=== PATIENT | female | born 1940 | race Caucasian/White ===

== ENCOUNTER → 2017-07-03 | Outpatient (CLI) | payer MEDICARE, OTHER ==
--- NOTE | 2017-07-03 18:04 | Diagnostic Imaging Report ---
INDICATION: Screening mammogram. COMPARISON: 06/30/2016. TECHNIQUE: Digital screening mammography was obtained. The current study was also evaluated with a Computer Aided Detection (CAD) system. FINDINGS: Scattered fibroglandular densities are again seen. There is no mass or suspicious calcification. IMPRESSION: Stable screening mammogram. No malignancy. ACR BI-RADS Category 1: Negative. Result letter will be mailed to the patient. Note: At least 10% of breast cancer is not imaged by mammography. Dictated on workstation # [id number]
== END ==
LOC: RAD 12:32
PROVIDERS: ATTEND Nurse Practitioner
DX: Z12.31 Encounter for screening mammogram for malignant neoplasm of breast (principal)
CPT/HCPCS: 77067

== ENCOUNTER → 2017-07-06 | Outpatient (CLI) | payer MEDICARE, OTHER ==
--- NOTE | 2017-07-06 19:18 | Diagnostic Imaging Report ---
EXAMINATION: Supine abdomen at 11:09 a.m. INDICATION: Back pain. COMPARISON: There are no prior studies available for comparison. Two supine views of the abdomen were obtained. FINDINGS: There is a large 3.9 x 5.2 cm floccular calcification along the pelvis on the left. Most likely, this is related to a calcified uterine fibroid. If further study is desired, then ultrasound would be recommended. There is no other pathological calcification evident. There is a small amount of gas in both the large and small bowel in a nonspecific fashion. There is no evidence for bowel obstruction. There does appear to be a moderate amount of fecal material within the colon. There is no mass or organomegaly identified. The osseous structures are intact. IMPRESSION: 1. The bowel gas pattern is nonspecific. There is no acute abnormality identified. 2. The large floccular calcification along the pelvis on the left is most likely due to a uterine fibroid. Recommendations as above. Dictated by: Dictated on workstation # [id number]
--- NOTE | 2017-07-06 19:19 | Diagnostic Imaging Report ---
EXAMINATION: Lumbar spine at 11:10 p.m. INDICATION: Back pain. TECHNIQUE: AP, lateral, and spot lateral views were obtained. COMPARISON: There are no prior studies available for comparison. FINDINGS: The lateral view shows the vertebral body heights and alignment to be generally within normal limits and the intervertebral spaces to be fairly well maintained. There is no fracture or acute bony abnormality evident. There is no sign of a paraspinal mass. The large floccular calcification low in the pelvis on the left seen on the abdomen exam performed in conjunction with this study is again noted. Most likely, this finding is related to a calcified uterine fibroid. There is mild symmetrical sclerosis of the sacroiliac joints. IMPRESSION: 1. There is no evidence for an acute bony abnormality. 2. If there is clinical concern regarding spinal stenosis or nerve root encroachment and if further imaging is desired, then MRI would be recommended. Dictated by: Dictated on workstation # [id number]
--- NOTE | 2017-07-06 19:22 | Diagnostic Imaging Report ---
EXAMINATION: Sacrum and coccyx at 11:11 a.m. INDICATION: Pain. AP and lateral views were obtained. There are no previous studies available for comparison. FINDINGS: There is no fracture, dislocation, or acute bony abnormality evident. There is mild symmetrical sclerosis of the sacroiliac joints. The large floccular calcification in the left pelvis seen on the abdomen exam performed in conjunction with this study is again evident. Most likely, this is related to a uterine fibroid. IMPRESSION: There is no evidence for an acute bony abnormality. Dictated by: Dictated on workstation # [id number]
== END ==
LOC: RAD 10:27
PROVIDERS: ATTEND Nurse Practitioner
DX: M54.5 Low back pain (principal); R10.84 Generalized abdominal pain
CPT/HCPCS: 72100; 72220; 74000

== ENCOUNTER → 2019-01-08 | Outpatient (CLI) | payer MEDICARE, OTHER ==
--- NOTE | 2019-01-08 13:22 | Diagnostic Imaging Report ---
Indication: Fall. 4 views were obtained. Findings: Heart size is normal. There is minimal perihilar atelectasis and/or pneumonitis. Questionable small left pleural effusion. There is a fracture of the left sixth and seventh ribs laterally. Impression: Fractures of the left sixth and seventh ribs laterally Minimal perihilar atelectasis and/or pneumonitis and a small left pleural effusion. Dictated by: Dictated on workstation # [id number]
== END ==
LOC: RAD 10:54
PROVIDERS: ATTEND Physician Assistant
DX: S22.42XA Multiple fractures of ribs, left side, initial encounter for closed fracture (principal); J90 Pleural effusion, not elsewhere classified; W19.XXXA Unspecified fall, initial encounter
CPT/HCPCS: 71101

== ENCOUNTER → 2019-01-15 | Outpatient (CLI) | payer MEDICARE, OTHER ==
--- NOTE | 2019-01-15 12:11 | Diagnostic Imaging Report ---
INDICATION: Tripped on steps two weeks ago. Left rib fracture. TECHNIQUE: Single-view chest along with three views of left ribs at 10:11 a.m. CORRELATION STUDY: 01/08/2019. FINDINGS: The heart size, mediastinal configuration and pulmonary vascularity are within normal limits. Minimal atelectasis about the left mid lung field. Trace left pleural effusion. No pneumothorax. There do appear to be slight healing changes with early callus formation at the lateral left seventh rib fracture. There may be minimal healing changes of the sixth rib fracture. Alignment is relatively stable. IMPRESSION: 1. Minimal atelectasis about the left [id number] lung field along with trace left pleural effusion. 2. Suggestion of early healing changes about the relatively nondisplaced left sixth and seventh rib fractures. Dictated by: Dictated on workstation # [id number]
== END ==
LOC: RAD 09:39
PROVIDERS: ATTEND Physician Assistant
DX: S22.42XA Multiple fractures of ribs, left side, initial encounter for closed fracture (principal); J90 Pleural effusion, not elsewhere classified; W01.0XXA Fall on same level from slipping, tripping and stumbling without subsequent striking against object, initial encounter
CPT/HCPCS: 71101

== ENCOUNTER → 2019-03-07 | Outpatient (CLI) | payer MEDICARE, OTHER ==
--- NOTE | 2019-03-07 12:15 | Diagnostic Imaging Report ---
INDICATION: History of rib fracture. Recent fall. COMPARISON: 01/15/2019 and 01/08/2019. FINDINGS: Frontal and lateral radiographic views of the chest were obtained. Previously described left lateral rib fractures are essentially inconspicuous on this exam. There is however persistent linear opacity within the peripheral left mid lung, which may be on the basis of underlying scarring and/or atelectasis. Just inferior to this, there is an additional linear more nodular-appearing opacity, which extends in the CC. Otherwise, lungs are clear. There is no large effusion or pneumothorax on either side. Cardiac silhouette and pulmonary vasculature within normal limits. IMPRESSION: 1. Patient's known left-sided rib fractures are essentially inconspicuous. 2. Stable scarring and/or atelectasis in the left mid lung. 3. Stable second nodular opacity seen slightly more inferiorly, which may be on posttraumatic basis as well. True pulmonary nodule however cannot be excluded. Followup CT chest may be of benefit for further characterization. Dictated by: Dictated on workstation # [id number]
== END ==
LOC: RAD 11:09
PROVIDERS: ATTEND Internal Medicine
DX: J90 Pleural effusion, not elsewhere classified (principal); Z87.81 Personal history of (healed) traumatic fracture
CPT/HCPCS: 71046

== ENCOUNTER → 2019-03-14 | Outpatient (CLI) | payer MEDICARE, OTHER ==
[~2019-03-14] MED LIST: CATHETER FLUSH 10 ML SYR IV PRN; HOLD METFORMIN - RECEIVED CONTRAST 20 ML VIAL IV SCH; IOHEXOL 350 MG/ML 100 ML (OMNIPAQUE 350) VIAL IV ONE
--- NOTE | 2019-03-14 18:39 | Diagnostic Imaging Report ---
PROCEDURE: CT chest with contrast only. TECHNIQUE: Multiple contiguous axial images were obtained through the chest after administration of intravenous contrast. Auto Exposure Controls were utilized during the CT exam to meet ALARA standards for radiation dose reduction. INDICATION: Injury with rib fractures. FINDINGS: Callus formation is associated with healed or healing fractures of the left sixth, seventh, and eighth ribs in stable alignment. An acute rib fracture deformity is not identified. There is no pneumothorax or hemothorax. There are very minimal zones of subsegmental lingular and right middle lobe partial atelectasis of the anterior lung bases. No pneumatocele. No chest wall hematoma. The visualized upper abdomen shows a small hiatal hernia with no free fluid or free air. IMPRESSION: Callus is associated with healed or healing left rib fractures in stable alignment without findings of pulmonary parenchymal or pleural injury. Dictated by: Dictated on workstation # [id number]
== END ==
LOC: RAD 12:37
PROVIDERS: ATTEND Internal Medicine
DX: S22.42XD Multiple fractures of ribs, left side, subsequent encounter for fracture with routine healing (principal); L84 Corns and callosities
CPT/HCPCS: 71260

== ENCOUNTER → 2019-07-16 | Outpatient (CLI) | payer MEDICARE, OTHER ==
--- NOTE | 2019-07-16 13:12 | Diagnostic Imaging Report ---
INDICATION: Routine screening. COMPARISON: Comparison is made with prior mammograms from 07/12/2018 and 07/03/2017. TECHNIQUE: 2-D and 3-D bilateral screening mammography was performed. The current study was also evaluated with a Computer Aided Detection (CAD) system. 3-D tomosynthesis was also performed and reviewed. FINDINGS: Both breasts remain heterogeneously dense, limiting the sensitivity of mammography. Benign calcifications and benign nodular densities appear stable. No spiculated mass or malignant-appearing microcalcifications are seen. Axillae are unremarkable. IMPRESSION: No mammographic features suspicious for malignancy are identified. ACR BI-RADS Category 2: Benign findings. Result letter will be mailed to the patient. Note: At least 10% of breast cancer is not imaged by mammography. Dictated by: Dictated on workstation # [id number]
== END ==
LOC: RAD 09:42
PROVIDERS: ATTEND Nurse Practitioner
DX: Z12.31 Encounter for screening mammogram for malignant neoplasm of breast (principal)
CPT/HCPCS: 77067

== ENCOUNTER 2020-07-10 11:37 | Emergency (ER) | payer MEDICARE, OTHER ==
[~2020-07-10] VITALS: Ht 157 cm; Wt 68.9 kg
--- NOTE | 2020-07-10 12:19 | Diagnostic Imaging Report ---
INDICATION: Fall with pelvic pain. TECHNIQUE: AP pelvis obtained at 12:16 p.m. FINDINGS: No fracture or acute bony abnormality is seen. Joint spaces are unremarkable. There is a large densely calcified lesion in the pelvis which is probably a calcified fibroid. This is unchanged from 07/06/2017. IMPRESSION: No acute fracture of the bony pelvis. Dictated by: Dictated on workstation # [id number]
--- NOTE | 2020-07-10 12:22 | NUR ---
NOTIFIED OF PT DISCHARGE
--- NOTE | 2020-07-10 12:48 | ED Fall/Injury ---
General Chief Complaint: Trauma-Non Activation Stated Complaint: FALL Nursing Triage Note: fall Source: patient Exam Limitations: no limitations History of Present Illness Date Seen by Provider: Jul 10, 2020 Time Seen by Provider: 12:00 Initial Comments To ER by private vehicle with reports of a fall. She drove herself here and was ambulatory into the emergency room. She was at the bank turning around to turn her deposit box in and fell onto her butt. She did not hit her head. She complains of some pain to the left ischio and the low back. Location Injury Occurred: bank Occurred: just prior to arrival Severity: moderate Injuries/Pain Location: no injury Context: lost balance, slipped Associated Symptoms (Fall): Denies Symptoms Allergies and Home Medications Allergies Coded Allergies: No Allergy Information Available (Unverified , 03/14/19) Patient Home Medication List Home Medication List Reviewed: Yes Review of Systems Review of Systems Constitutional: see HPI Eyes: No Symptoms Reported Ears, Nose, Mouth, Throat: no symptoms reported Respiratory: no symptoms reported Cardiovascular: no symptoms reported Genitourinary: no symptoms reported Musculoskeletal: no symptoms reported Skin: no symptoms reported Psychiatric/Neurological: No Symptoms Reported Past Ufktwvj-Kdercc-Kznxxh Hx Patient Social History Alcohol Use: Denies Use Recreational Drug Use: No 2nd Hand Smoke Exposure: No Recent Foreign Travel: No Contact w/Someone Who Travel: No Recent Infectious Disease Expo: No Recent Hopitalizations: No Seasonal Allergies Seasonal Allergies: No Past Medical History Respiratory: No Cardiac: No Neurological: No Genitourinary: No Gastrointestinal: No Musculoskeletal: No Endocrine: No HEENT: No Cancer: No Psychosocial: No Integumentary: No Blood Disorders: No Physical Exam Vital Signs Vital Signs - First Documented 07/10/20 11:56 Temp 36.4 Pulse 68 Resp 18 B/P (MAP) 145/71 (95) Pulse Ox 95 O2 Delivery Room Air Capillary Refill : Less Than 3 Seconds Height, Weight, BMI Height: '" Weight: lbs. oz. kg; 27.00 BMI Method: General Appearance: WD/WN, no apparent distress Neck: non-tender, full range of motion Respiratory: no respiratory distress, no accessory muscle use Gastrointestinal: normal bowel sounds, soft Back: other (tenderness to palpation left ischio M, no tenderness to palpation of the lumbar spine. Alert and oriented for a pleasant.) Neurologic/Psychiatric: alert, normal mood/affect, oriented x 3 Skin: normal color, warm/dry [place] Coma Score Best Eye Response: (4) Open Spontaneously Best Verbal Response: (5) Oriented Best Motor Response: (6) Obeys Commands Donna Total: 15 Progress/Results/Core Measures Results/Orders My Orders Orders - MARIAN DEY APRN Pelvis (07/10/20 11:51) Ct Lumbar Spine Wo (07/10/20 12:26) Tramadol Tablet (Ultram Tablet) (07/10/20 13:30) Medications Given in ED Current Medications Medications Dose Ordered Sig/Janel Route Start Time Stop Time Status Last Admin Dose Admin Tramadol HCl 50 mg ONCE ONCE PO 07/10/20 13:30 07/10/20 13:31 DC 07/10/20 13:34 50 MG Vital Signs/I&O 07/10/20 11:56 Temp 36.4 Pulse 68 Resp 18 B/P (MAP) 145/71 (95) Pulse Ox 95 O2 Delivery Room Air Blood Pressure Mean: 95 Diagnostic Imaging Diagonstic Imaging: Xray Comments NAME: [facility] REC#: [id number] PT STATUS: REG ER : 1940 PHYSICIAN: MARIAN DEY APRN ADMIT DATE: 07/10/20/ER Draft Date of Exam:07/10/20 CT LUMBAR SPINE WO PROCEDURE: CT lumbar spine without contrast. TECHNIQUE: Multiple contiguous axial images were obtained through the lumbar spine without the use of intravenous contrast. Sagittal and coronal reformations were then performed. Auto Exposure Controls were utilized during the CT exam to meet ALARA standards for radiation dose reduction. INDICATION: Fall and low back pain. FINDINGS: Curvature of the lumbar spine is normal. There appears to be an acute compression fracture involving the L1 vertebral body. This predominantly involves the superior endplate, anteriorly and centrally. No significant retropulsion is identified. Remaining lumbar vertebrae show normal stature. Bony canal is patent. No paraspinous hematoma is identified. IMPRESSION: Acute compression fracture of L1 vertebral body without evidence of retropulsion. Dictated on workstation # [id number] Dict: 07/10/20 1320 Trans: 07/10/20 1325 [id number] Interpreted by: MARY DINH MD Electronically signed by: Departure Impression Primary Impression: Compression fracture of L1 vertebra Qualified Codes: S32.010A - Wedge compression fracture of first lumbar vertebra, initial encounter for closed fracture Disposition: 01 HOME, SELF-CARE Condition: Stable Departure-Patient Inst. Decision time for Depature: 13:38 Referrals: JAY CASTRO MD (PCP/Family) Primary Care Physician Patient Instructions: Vertebral Compression Fracture Add. Discharge Instructions: 1. Follow-up with your doctor later next week for recheck. Pain medication as directed. Return to ER for any intolerable pain or other concerns. All discharge instructions reviewed with patient and/or family. Voiced understanding. Scripts Tramadol HCl (Ultram) 50 Mg Tablet 50 MG PO Q6H PRN for PAIN-MODERATE (5-7), #30 TAB Prov: MARIAN DEY APRN 07/10/20 MARIAN DEY APRN Jul 10, 2020 12:48
--- NOTE | 2020-07-10 13:25 | Diagnostic Imaging Report ---
PROCEDURE: CT lumbar spine without contrast. TECHNIQUE: Multiple contiguous axial images were obtained through the lumbar spine without the use of intravenous contrast. Sagittal and coronal reformations were then performed. Auto Exposure Controls were utilized during the CT exam to meet ALARA standards for radiation dose reduction. INDICATION: Fall and low back pain. FINDINGS: Curvature of the lumbar spine is normal. There appears to be an acute compression fracture involving the L1 vertebral body. This predominantly involves the superior endplate, anteriorly and centrally. No significant retropulsion is identified. Remaining lumbar vertebrae show normal stature. Bony canal is patent. No paraspinous hematoma is identified. IMPRESSION: Acute compression fracture of L1 vertebral body without evidence of retropulsion. Dictated by: Dictated on workstation # [id number]
[2020-07-10] MEDS ORDERED: TRAM-42 PO (13:43)
[2020-07-10 13:55] VITALS: BP 134/73
== END 2020-07-10 13:55 | disposition home or self-care (01) ==
LOC: EDUNIT# 11:37 → ER 11:38
DX: S32.010A Wedge compression fracture of first lumbar vertebra, initial encounter for closed fracture (principal); R40.2142 Coma scale, eyes open, spontaneous, at arrival to emergency department; R40.2252 Coma scale, best verbal response, oriented, at arrival to emergency department; R40.2362 Coma scale, best motor response, obeys commands, at arrival to emergency department; W01.0XXA Fall on same level from slipping, tripping and stumbling without subsequent striking against object, initial encounter
CPT/HCPCS: 72131; 72170

== ENCOUNTER → 2021-07-23 | Outpatient (CLI) | payer MEDICARE, OTHER ==
[~2021-07-23] MED LIST changes: -CATHETER FLUSH 10 ML SYR IV PRN; -HOLD METFORMIN - RECEIVED CONTRAST 20 ML VIAL IV SCH; -IOHEXOL 350 MG/ML 100 ML (OMNIPAQUE 350) VIAL IV ONE; +TRAM-42 PO
--- NOTE | 2021-07-23 12:41 | Diagnostic Imaging Report ---
INDICATION: Routine screening. Comparison is made with prior mammogram 07/16/2019 and 07/12/2018. 2-D and 3-D bilateral screening mammography was performed with CAD. Both breasts are heterogeneously dense, limiting the sensitivity of mammography. The parenchymal pattern is stable. No mass or malignant-appearing microcalcifications are seen. There are scattered benign calcifications. Axillae are unremarkable. IMPRESSION: BI-RADS Category 2 No mammographic features suspicious for malignancy are identified. ACR BI-RADS Category 2: Benign findings. Result letter will be mailed to the patient. Note: At least 10% of breast cancer is not imaged by mammography. Dictated by: Dictated on workstation # [id number]
== END ==
LOC: RAD 09:42
PROVIDERS: ATTEND Physician Assistant
DX: Z12.31 Encounter for screening mammogram for malignant neoplasm of breast (principal)
CPT/HCPCS: 77063; 77067

== ENCOUNTER 2022-11-16 11:51 | Emergency (ER) | payer MEDICARE, OTHER ==
[~2022-11-16] VITALS: Ht 157 cm; Wt 68.0 kg
--- NOTE | 2022-11-16 12:14 | ED Chest Pain ---
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 PT ALSO REPORTS ABDOMINAL BLOATING AND GAS. Source: patient Exam Limitations: no limitations History of Present Illness Date Seen by Provider: Nov 16, 2022 Time Seen by Provider: 11:58 Initial Comments Here with report of chest pain that started last night. States that later evening she started having chest pressure feelings and felt like she had to b urp. That would come and go. But she also felt like she had skipped beats. Denies nausea or vomiting but has had diarrhea. She is on metformin and that has caused diarrhea intermittently over the last 2 years. Still feels bloated now. States that it happened on and off throughout the whole evening and night. She called her doctor's office this morning who saw her there. Because of persistence of symptoms, they requested that she come here for evaluation. Patient follows with Dr. Castro and saw MELISSA Ortiz this morning. Denies upper respiratory symptoms. Timing/Duration: 12 hours Severity/Quality: moderate, dull, other (Bloating) Location: central Radiation: no radiation Activities at Onset: none Prior CP/Workup: no prior chest pain, no prior cardiac workup ASA po RESTAURANT MANAGER: No NTG SL RESTAURANT MANAGER: No Associated Symptoms: abdominal pain (Cramping); No back pain, No diaphoresis, No dizziness, No nausea/vomiting; shortness of breath; No weakness Allergies and Home Medications Allergies Coded Allergies: No Allergy Information Available (Unverified , 03/14/19) Patient Home Medication List Home Medication List Reviewed: Yes Tramadol HCl (Ultram) 50 Mg Tablet, 50 MG PO Q6H PRN for PAIN-MODERATE (5-7) Prescribed by: MARIAN DEY on 07/10/20 1343 Review of Systems Review of Systems Constitutional: see HPI; No chills, No fever EENTM: No Nose Congestion, No Throat Pain Cardiovascular: Chest Pain; Denies Edema Gastrointestinal: Diarrhea; Denies Nausea Musculoskeletal: No back pain, No muscle pain Past Ntgyldp-Zrdxlx-Ksjajp Hx Patient Social History Tobacco Use?: No Substance use?: No Alcohol Use?: Yes Alcohol type: Beer Alcohol Frequency: Once in a while Pt feels they are or have been: No Immunizations Up To Date First/Initial COVID19 Vaccinat: YES Second COVID19 Vaccination Thierry: YES Seasonal Allergies Seasonal Allergies: No Past Medical History Surgery/Hospitalization HX: HTN, DM Surgeries: No Respiratory: No Cardiac: Yes Hypertension Neurological: No Genitourinary: No Gastrointestinal: No Musculoskeletal: No Endocrine: Yes Diabetes, Non-Insulin dep HEENT: No Cancer: No Psychosocial: No Integumentary: No Blood Disorders: No Family Medical History Reviewed and Corrections made No Pertinent Family Hx Physical Exam Vital Signs Vital Signs - First Documented 11/16/22 11:56 Temp 36.1 Pulse 80 Resp 16 B/P (MAP) 182/67 (105) Pulse Ox 97 Capillary Refill : Less Than 3 Seconds Height, Weight, BMI Height: '" Weight: lbs. oz. kg; 27.00 BMI Method: General Appearance: No Apparent Distress, WD/WN HEENT: PERRL/EOMI, Pharynx Normal Neck: Non Tender, Supple Respiratory: Lungs Clear, Normal Breath Sounds Cardiovascular: Regular Rate, Rhythm, No Murmur Gastrointestinal: Non Tender, Soft, Abnormal Bowel Sounds (Hyperactive and bubbly sounding) Extremity: Normal Range of Motion, Non Tender, No Pedal Edema Neurologic/Psychiatric: Alert, Oriented x3 Skin: Normal Color, Warm/Dry Progress/Results/Core Measures Results/Orders Lab Results Laboratory Tests Test 11/16/22 12:00 11/16/22 14:16 Range/Units White Blood Count 11.6 H 4.3-11.0 10^3/uL Red Blood Count 5.23 H 3.80-5.11 10^6/uL Hemoglobin 15.4 11.5-16.0 g/dL Hematocrit 44 35-52 % Mean Corpuscular Volume 85 80-99 fL Mean Corpuscular Hemoglobin 29 25-34 pg Mean Corpuscular Hemoglobin Concent 35 32-36 g/dL Red Cell Distribution Width 12.1 10.0-14.5 % Platelet Count 338 130-400 10^3/uL Mean Platelet Volume 9.3 9.0-12.2 fL Immature Granulocyte % (Auto) 0 % Neutrophils (%) (Auto) 67 42-75 % Lymphocytes (%) (Auto) 24 12-44 % Monocytes (%) (Auto) 6 0-12 % Eosinophils (%) (Auto) 2 0-10 % Basophils (%) (Auto) 1 0-10 % Neutrophils # (Auto) 7.9 H 1.8-7.8 10^3/uL Lymphocytes # (Auto) 2.8 1.0-4.0 10^3/uL Monocytes # (Auto) 0.7 0.0-1.0 10^3/uL Eosinophils # (Auto) 0.2 0.0-0.3 10^3/uL Basophils # (Auto) 0.1 0.0-0.1 10^3/uL Immature Granulocyte # (Auto) 0.1 0.0-0.1 10^3/uL Prothrombin Time 12.8 12.2-14.7 SEC INR Comment 0.9 0.8-1.4 Activated Partial Thromboplast Time 31 24-35 SEC Sodium Level 134 L 135-145 MMOL/L Potassium Level 3.6 3.6-5.0 MMOL/L Chloride Level 99 98-107 MMOL/L Carbon Dioxide Level 22 21-32 MMOL/L Anion Gap 13 5-14 MMOL/L Blood Urea Nitrogen 7 7-18 MG/DL Creatinine 0.65 0.60-1.30 MG/DL Estimat Glomerular Filtration Rate 87 BUN/Creatinine Ratio 11 Glucose Level 180 H 70-105 MG/DL Calcium Level 9.5 8.5-10.1 MG/DL Corrected Calcium 9.1 8.5-10.1 MG/DL Magnesium Level 1.7 1.6-2.4 MG/DL Total Bilirubin 0.6 0.1-1.0 MG/DL Aspartate Amino Transf (AST/SGOT) 18 5-34 U/L Alanine Aminotransferase (ALT/SGPT) 19 0-55 U/L Alkaline Phosphatase 64 40-136 U/L Myoglobin 29.4 10.0-92.0 NG/ML Troponin I < 0.028 < 0.028 <0.028 NG/ML Total Protein 7.7 6.4-8.2 GM/DL Albumin 4.5 3.2-4.5 GM/DL My Orders Orders - SUZANNE DUGGAN MD Ekg Tracing (11/16/22 11:56) Cbc With Automated Diff (11/16/22 12:11) Magnesium (11/16/22 12:11) Chest 1 View, Ap/Pa Only (11/16/22 12:11) Comprehensive Metabolic Panel (11/16/22 12:11) Myoglobin Serum (11/16/22 12:11) Protime With Inr (11/16/22 12:11) Partial Thromboplastin Time (11/16/22 12:11) O2 (11/16/22 12:11) Monitor-Rhythm Ecg Trace Only (11/16/22 12:11) Lipid Panel (11/17/22 06:00) Ed Iv/Invasive Line Start (11/16/22 12:11) Troponin I Cook (11/16/22 12:11) Aspirin Chewable Tablet (Baby Aspirin Ch (11/16/22 12:15) Troponin I Cook (11/16/22 14:00) Medications Given in ED Current Medications Medications Dose Ordered Sig/Janel Route Start Time Stop Time Status Last Admin Dose Admin Aspirin 324 mg ONCE ONCE PO 11/16/22 12:15 11/16/22 12:16 DC 11/16/22 12:29 324 MG Vital Signs/I&O 11/16/22 11:56 Temp 36.1 Pulse 80 Resp 16 B/P (MAP) 182/67 (105) Pulse Ox 97 Blood Pressure Mean: 105 Progress Progress Note : Progress Note Seen and evaluated. IV, CBC, CMP, troponin, chest x-ray and EKG ordered. ASA 324 mg p.o. Monitor patient. Differential diagnosis includes cardiac event, GI upset, electrolyte abnormality 1309: CBC shows slightly elevated white count but normal hemoglobin. Chemistry shows normal creatinine and electrolytes but sugar is slightly elevated. Patient reports not taking her metformin this morning.. Troponin negative. Chest x-ray as interpreted by me shows no acute findings and I do not see evidence of large hiatal hernia.. Radiology report pending. We will repeat tro ponin at 1400. If it remains negative then cardiac event much less likely. Monitor patient. 1458: Patient has remained pain-free throughout ED visit. Repeat troponin is negative. No ectopy on the monitor her blood pressure normal. Daughter at bedside. Discharged home with return precautions. Patient and daughter verbalized understanding of instructions and agreement with plan. I will send a copy of the chart to patient's primary care doctor. Initial ECG Impression Date: Nov 16, 2022 Initial ECG Impression Time: 12:01 Initial ECG Rate: 86 Initial ECG Rhythm: Normal Sinus Initial ECG Intervals: Normal Initial ECG Impression: Normal Initial ECG Comparisson: No Previous ECG Available Comment Sinus rhythm with normal axis. No evidence of ST elevation MD. No previous available for comparison. Interpreted by me. Diagnostic Imaging Diagonstic Imaging: Xray Plain Films/CT/US/NM/MRI: chest Comments [facility] [place], [place] NAME: DIEGO WILCOX [facility] REC#: [id number] PT STATUS: REG ER : 1940 PHYSICIAN: SUZANNE DUGGAN MD ADMIT DATE: 11/16/22/ER Signed Date of Exam:11/16/22 CHEST 1 VIEW, AP/PA ONLY EXAMINATION: Chest 1 view HISTORY: Chest pain COMPARISON: 03/07/2019. FINDINGS: Heart size and pulmonary vasculature are normal. The lungs are clear without consolidation, pleural effusion, or pneumothorax. The osseous structures are intact. IMPRESSION: 1. No acute radiographic abnormality in the chest. Dictated by: Dictated on workstation # [id number] Dict: 11/16/22 1242 Trans: 11/16/22 1252 [id number] Interpreted by: MARISOL SHERWOOD DO Electronically signed by: MARISOL SHERWOOD DO 11/16/22 1252 Departure Impression Primary Impression: Chest pain Qualified Codes: R07.9 - Chest pain, unspecified Additional Impression: Diarrhea Qualified Codes: R19.7 - Diarrhea, unspecified Disposition: 01 HOME, SELF-CARE Condition: Stable Departure-Patient Inst. Referrals: JAY CASTRO MD (PCP/Family) Primary Care Physician Patient Instructions: Chest Pain (DC), Diarrhea, Adult ED Add. Discharge Instructions: All discharge instructions reviewed with patient and/or family. Voiced understanding. Follow-up with your primary care doctor in 1 to 2 days for recheck and further evaluation and for discussion regarding further cardiac testing including stress test if indicated. Light diet with plenty of fluids for the next 1 to 2 days and then advance as tolerated. Discussed with your doctor regarding metformin and diarrhea. Return for worsening, fever, vomiting, weakness, breathing problems or other concerns as needed. Copy Copies To 1: JAY CASTRO MD, TIMOTHY D MD Nov 16, 2022 12:14
[2022-11-16] MEDS ORDERED: ASPIRIN 81 MG CHEW (CHILDREN'S ASA) PO ONE (12:15)
[2022-11-16 12:18] LABS: BASOPHILS # (AUTO) 0.1 10^3/uL (0.0-0.1); BASOPHILS % (AUTO) 1 % (0-10); EOSINOPHILS # (AUTO) 0.2 10^3/uL (0.0-0.3); EOSINOPHILS % (AUTO) 2 % (0-10); HEMATOCRIT 44 % (35-52); HEMOGLOBIN 15.4 g/dL (11.5-16.0); LYMPHOCYTES # (AUTO) 2.8 10^3/uL (1.0-4.0); LYMPHOCYTES % (AUTO) 24 % (12-44); MEAN CORPUSCULAR HEMOGLOBIN 29 pg (25-34); MEAN CORPUSCULAR HGB CONC 35 g/dL (32-36); MEAN CORPUSCULAR VOLUME 85 fL (80-99); MEAN PLATELET VOLUME 9.3 fL (9.0-12.2); MONOCYTES # (AUTO) 0.7 10^3/uL (0.0-1.0); MONOCYTES % (AUTO) 6 % (0-12); NEUTROPHILS # (AUTO) 7.9 10^3/uL (1.8-7.8); NEUTROPHILS % (AUTO) 67 % (42-75); PLATELET COUNT 338 10^3/uL (130-400); WHITE BLOOD COUNT 11.6 10^3/uL (4.3-11.0)
[2022-11-16 12:23] LABS: ALBUMIN 4.5 GM/DL (3.2-4.5); POTASSIUM 3.6 MMOL/L (3.6-5.0)
[2022-11-16 12:24] LABS: CALCIUM 9.5 MG/DL (8.5-10.1)
[2022-11-16 12:25] LABS: TOTAL PROTEIN 7.7 GM/DL (6.4-8.2)
[2022-11-16 12:27] LABS: BILIRUBIN,TOTAL 0.6 MG/DL (0.1-1.0)
[2022-11-16 12:29] LABS: CREATININE SERUM 0.65 MG/DL (0.60-1.30)
[2022-11-16 12:32] LABS: MAGNESIUM 1.7 MG/DL (1.6-2.4)
[2022-11-16 12:42] LABS: INR 0.9 (0.8-1.4); PROTHROMBIN TIME PATIENT 12.8 SEC (12.2-14.7)
--- NOTE | 2022-11-16 12:44 | Diagnostic Imaging Report ---
EXAMINATION: Chest 1 view HISTORY: Chest pain COMPARISON: 03/07/2019. FINDINGS: Heart size and pulmonary vasculature are normal. The lungs are clear without consolidation, pleural effusion, or pneumothorax. The osseous structures are intact. IMPRESSION: 1. No acute radiographic abnormality in the chest. Dictated by: Dictated on workstation # [id number]
[2022-11-16 15:11] VITALS: BP 152/72
== END 2022-11-16 15:08 | disposition home or self-care (01) ==
LOC: EDUNIT# 11:51 → ER 11:54
DX: R07.9 Chest pain, unspecified (principal); R19.7 Diarrhea, unspecified; E11.9 Type 2 diabetes mellitus without complications; D72.829 Elevated white blood cell count, unspecified; Z79.84 Long term (current) use of oral hypoglycemic drugs
CPT/HCPCS: 36415; 71045; 80053; 83735; 83874; 84484; 85025; 85610; 85730; 93005